=== PATIENT | female | born 1950 | race Two or more races ===

== ENCOUNTER 2021-07-29 13:04 | Emergency (ER) | payer OTHER ==
[~2021-07-29] VITALS: Ht 160 cm; Wt 90.7 kg
[2021-07-29] MEDS ORDERED: LEVO500T31 PO (14:06)
[2021-07-29] MEDS ORDERED: BENZ100C19 PO (14:06)
[2021-07-29 14:10] VITALS: BP 142/59
== END 2021-07-29 14:29 | disposition home or self-care (01) ==
LOC: ER 13:04
DX: J20.9 Acute bronchitis, unspecified (principal); E78.5 Hyperlipidemia, unspecified
CPT/HCPCS: 71046

== ENCOUNTER 2022-02-12 10:53 | Emergency (ER) | payer OTHER ==
[~2022-02-12] VITALS: Ht 165.1 cm; Wt 109.0 kg
[~2022-02-12 10:53] MED LIST: BENZ100C19 PO; LEVO500T31 PO
[2022-02-12] MEDS ORDERED: CEPH-322 PO (13:06)
[2022-02-12 19:56] VITALS: BP 97/56
== END 2022-02-12 20:10 | disposition home or self-care (01) ==
LOC: ER 10:53
DX: L03.115 Cellulitis of right lower limb (principal); E78.5 Hyperlipidemia, unspecified; Z79.899 Other long term (current) drug therapy
CPT/HCPCS: 93971